=== PATIENT | male | born 1945 | race Two or more races ===

== ENCOUNTER → 2017-08-30 | Outpatient (CLI) | payer OTHER | END | disposition home or self-care (01) | LOC: LAB 07:49 | DX: C61 Malignant neoplasm of prostate (principal) ==

== ENCOUNTER 2017-09-06 07:17 | Outpatient (CLI) | payer OTHER | END 2017-09-06 07:37 | disposition home or self-care (01) | LOC: TOM 07:17 | DX: C61 Malignant neoplasm of prostate (principal) ==

== ENCOUNTER → 2017-09-14 08:42 | Outpatient (CLI) | payer OTHER | END | disposition home or self-care (01) | LOC: NUCLEAR 08:42 | DX: C61 Malignant neoplasm of prostate (principal) | CPT/HCPCS: 78306; 78320; A9503 ==

== ENCOUNTER 2018-06-23 08:01 | Outpatient (CLI) | payer OTHER | END 2018-06-23 08:29 | disposition home or self-care (01) | LOC: LAB 08:01 | DX: C61 Malignant neoplasm of prostate (principal) ==

== ENCOUNTER 2019-06-08 07:27 | Outpatient (CLI) | payer OTHER | END 2019-06-08 14:51 | disposition home or self-care (01) | LOC: LAB 07:27 | DX: C61 Malignant neoplasm of prostate (principal) ==

== ENCOUNTER 2019-10-01 15:36 | Outpatient (CLI) | payer OTHER | END 2019-10-01 15:38 | disposition home or self-care (01) | LOC: RAD 15:36 | DX: R05 Cough (principal); M54.5 Low back pain ==

== ENCOUNTER 2020-10-15 08:19 | Outpatient (CLI) | payer OTHER | END 2020-10-15 08:22 | disposition home or self-care (01) | LOC: RAD 08:19 | PROVIDERS: ATTEND Surgery Surgery of the Hand | DX: M15.0 Primary generalized (osteo)arthritis (principal) ==

== ENCOUNTER → 2021-05-27 07:23 | Outpatient (CLI) | payer OTHER | END | disposition home or self-care (01) | LOC: LAB 07:23 | DX: I11.9 Hypertensive heart disease without heart failure (principal); E11.9 Type 2 diabetes mellitus without complications; E78.2 Mixed hyperlipidemia; R00.2 Palpitations; C61 Malignant neoplasm of prostate ==

== ENCOUNTER → 2023-06-01 06:54 | Outpatient (CLI) | payer OTHER | END | disposition home or self-care (01) | LOC: LAB 06:54 | DX: C61 Malignant neoplasm of prostate (principal) ==

== ENCOUNTER → 2024-09-20 07:45 | Outpatient (CLI) | payer OTHER ==
[2024-09-20 08:18] LABS: PH,URINE 5.5 (5.0-8.0); URINE APPEARANCE Clear; URINE BILIRRUBIN Negative (NEGATIVE); URINE BLOOD Negative; URINE COLOR Yellow; URINE GLUCOSE Negative (NEGATIVE); URINE KETONE Negative (NEGATIVE); URINE LEUKOCYTE Negative; URINE NITRATE Negative; URINE PROTEIN Negative (NEGATIVE)
[2024-09-20 08:21] LABS: URINE BACTERIA 4.8 uL (0.0-1933); URINE RBC 5.5 uL (0.0-20.8)
[2024-09-20 08:25] LABS: HEMATOCRIT 42.5 % (39.0-48.0); HEMOGLOBIN 14.7 g/dL (13-16.00); MEAN CORPUSCULAR HEMOGLOBIN 32.1 pg (27.00-32.0); MEAN CORPUSCULAR HGB CONC 34.5 g/dl (32.0-36.0); PLATELET COUNT 209 K/uL (150-450); RED BLOOD COUNT 4.57 M/uL (4.00-6.00)
[2024-09-20 08:26] LABS: URINE WBC 0.4 uL (0.0-23.2)
[2024-09-20 08:51] LABS: ALBUMIN 3.6 gm/dL (3.4-5.0); ALKALINE PHOSPHATASE 54 U/L (50-136); ALT/SGPT 27 U/L (12-78); ANION GAP 7 (10.0-20.0); AST/SGOT 22 U/L (15-37); BILIRUBIN TOTAL 0.93 mg/dL (0.3-1.2); BLOOD UREA NITROGEN 19 mg/dL (7-18); BUN CREA RATIO 20 (7.0-25.0); CALCIUM 8.9 mg/dL (8.5-10.1); CARBON DIOXIDE 31 mEq/L (21-32); CHLORIDE 108 mmol/L (98-107); CHOL HDL RATIO 2.8 (0-5.0); CHOLESTEROL 170 mg/dL (0-200); CREATININE SERUM 0.95 mg/dL (0.70-1.30); GFR 76.48; GLOBULINA 2.8 G/DL (2.4-3.5); GLUCOSE FASTING 93 mg/dL (65-100); HDL 61 mg/dl (40-60); LDL 99 mg/dl (0-130); OSMOLALITY SERUM 283 MOSM/KG (275-295); POTASSIUM 4.94 mEq/L (3.5-5.1); SODIUM 141 mmol/L (136-145); TOTAL PROTEIN 6.4 gm/dL (6.4-8.2); TRIGLYCERIDES 51 mg/dL (0-150); VLDL 10 (0-39)
[2024-09-20 08:53] LABS: PROSTATIC SPECIFIC ANTIGEN < 0.010 NG/ML (0.010-4.00)
== END | disposition home or self-care (01) ==
LOC: LAB 07:45
PROVIDERS: ATTEND Obstetrics & Gynecology
DX: C61 Malignant neoplasm of prostate (principal); R00.2 Palpitations; I11.9 Hypertensive heart disease without heart failure; E11.9 Type 2 diabetes mellitus without complications; E78.2 Mixed hyperlipidemia